=== PATIENT | female | born 1985 | race Caucasian/White ===

== ENCOUNTER → 2018-08-31 09:51 | Outpatient (CLI) | payer OTHER, SELFPAY ==
[2018-08-31 10:46] LABS: Urine Amphetamines Negative (Negative); Urine Barbiturates Negative (Negative); Urine Benzodiazepines Negative (Negative); Urine Cocaine Negative (Negative); Urine MDMA Negative (Negative); Urine Methadone Negative (Negative); Urine Methamphetamines Negative (Negative); Urine Morphine/Opi cutoff 2000 Negative (Negative); Urine Oxycodone Negative (Negative); Urine Phencyclidine Negative (Negative); Urine Tetrahydrocannabinol Negative (Negative); Urine Tricyclic Antidepressant Positive (Negative)
== END ==
PROVIDERS: PCP Family Medicine; Visit Provider Psychiatry & Neurology Psychiatry
DX: F41.9 Anxiety disorder, unspecified (principal); F43.10 Post-traumatic stress disorder, unspecified; F90.9 Attention-deficit hyperactivity disorder, unspecified type; G47.00 Insomnia, unspecified
CPT/HCPCS: 80305